=== PATIENT | male | born 1995 | race Caucasian/White ===

== ENCOUNTER 2021-06-09 20:19 | Emergency (ER) | payer BC ==
[~2021-06-09] VITALS: Ht 182.9 cm; Wt 81.6 kg
[2021-06-09 20:57] VITALS: BP_SYST 137
--- NOTE | 2021-06-09 21:01 | NUR ---
Patient triaged and placed in waiting room. VSS and patient appears in no acute distress at this time. Awaiting available bed, and MD notified of need for MSE.
--- NOTE | 2021-06-09 21:19 | NUR ---
Patient to bed 1 for eval
[2021-06-09] MEDS ORDERED: LIDOCAINE 1% 10 MG/ML, 20 ML MDV SUBCUT ONE (21:30)
[2021-06-09] MEDS ORDERED: DIPH-TET-PERTUS Vaccine 0.5 ML VIAL (ADACEL) I.M. ONE (21:30)
[2021-06-09] MEDS ORDERED: BACITRACIN 1 GM OINT TP ONE (21:30)
--- NOTE | 2021-06-09 21:51 | NUR ---
Pt DC per MD's order DC instructions and medications given pt verbalized understandings Tetanus shot received Consent obtained Pt exited ED in stable gait
== END 2021-06-09 21:50 | disposition home or self-care (01) ==
LOC: SED 20:19
DX: S61.412A Laceration without foreign body of left hand, initial encounter (principal); W26.0XXA Contact with knife, initial encounter; Y93.89 Activity, other specified; Y92.89 Other specified places as the place of occurrence of the external cause; Y99.8 Other external cause status
CPT/HCPCS: 12001; 90471; 90715; 99283; J2001

== ENCOUNTER 2021-08-15 05:45 | Emergency (ER) | payer BC ==
[~2021-08-15] VITALS: Ht 182.9 cm; Wt 90.7 kg
[2021-08-15 07:05] VITALS: BP_SYST 125
--- NOTE | 2021-08-15 07:09 | NUR ---
Patient triaged and placed in waiting room. VS checked and patient appears in no acute distress at this time. Accompanied by self, awaiting available bed, and MD notified of need for MSE.
--- NOTE | 2021-08-15 08:57 | NUR ---
FIRST CONTACT WITH PT. PT REPORTS A STYE TO L EYE X2 WEEKS THAT IS GETTING WORSE. PT STATES STYE STARTED ON UPPER EYELID AND IS NOW ON LOWER EYELID. +INJECTED CONJUNTIVA TO L EYE WITH PERIORBITAL SWELLING. +TEARING AND YELLOWISH DRAINAGE NOTED IN CANTHUS. DENIES EYE PAIN. R EYE WNL. RESP EVEN AND UNLABORED. NO DISTRESS NOTED. WILL CONT TO MONITOR.
--- NOTE | 2021-08-15 09:31 | NUR ---
FAN Werner at bedside examining patient.
[2021-08-15 10:28] VITALS: BP_SYST 131
--- NOTE | 2021-08-15 10:29 | NUR ---
PT RESTING COMFORTABLY. NO DISTRESS. AWAITING EYE EXAM. WILL CONT TO MONITOR
[2021-08-15] MEDS ORDERED: ERYTHROMYCIN 0.5% EYE OINT 3.5 GM OP ONE (10:45)
[2021-08-15] MEDS ORDERED: ERYTHROMYCIN BASE 0.5% EYE OINT...G. ONE (11:03)
[2021-08-15] MEDS ORDERED: ERYEYE EACH EYE (11:05)
[2021-08-15] MEDS ORDERED: IBUP-1969 PO (11:05)
--- NOTE | 2021-08-15 11:15 | NUR ---
Patient given written and verbal discharge instructions and verbalizes understanding. ER Dr. Debbi GARCIA discussed with patient the results and treatment provided. Patient in stable condition. ID arm band removed. Rxs Erythromycin ointment and Ibuprofen given. Patient educated on pain management and to follow up with PMD. Pain Scale 0/10. Opportunity for questions provided and answered. Medication side effect fact sheet provided.
== END 2021-08-15 11:12 | disposition home or self-care (01) ==
LOC: SED 05:45
DX: T15.12XA Foreign body in conjunctival sac, left eye, initial encounter (principal); H10.9 Unspecified conjunctivitis; Z79.899 Other long term (current) drug therapy; X58.XXXA Exposure to other specified factors, initial encounter; Y93.89 Activity, other specified; Y92.89 Other specified places as the place of occurrence of the external cause; Y99.8 Other external cause status
CPT/HCPCS: 99284